=== PATIENT | female | born 1960 | race Caucasian/White ===

== ENCOUNTER 2017-01-14 15:02 | Emergency (ER) | payer OTHER | END 2017-01-14 16:25 | disposition home or self-care (01) | LOC: ER 15:02 | DX: R07.2 Precordial pain (principal); I10 Essential (primary) hypertension; R11.0 Nausea; R51 Headache; R06.00 Dyspnea, unspecified; E66.9 Obesity, unspecified; J44.9 Chronic obstructive pulmonary disease, unspecified; F17.200 Nicotine dependence, unspecified, uncomplicated | CPT/HCPCS: 36415; 96374; 96375; J0360; J1200; J1885; J2765 ==